=== PATIENT | female | born 1985 | race Hispanic/Latino ===

== ENCOUNTER 2016-07-28 18:01 | Outpatient (CLI) | payer MEDICAID ==
[2016-07-28 19:32] VITALS: BP 93/35
[2016-07-28] MEDS ORDERED: LACTATED RINGERS 500 ML IV ONE (19:46)
--- NOTE | 2016-07-28 19:52 | Event Note ---
Date: 07/28/16 (pt c/o burning in upper abdomen) Pt presents to triage c/o pain and burning in upper abdomen Pt is previous c/s X 2 Schedule for repeat @ 39 weeks SVE .5,30%,-4 Reactive tracing Ctx irreg mild Pt denies feeling them when they record on the monitor Will complete NST. Send UA IVF hydration Pepcid IV Re-eval with UA result.
[2016-07-28] MEDS ORDERED: PEPCID IV SCH (20:00)
[2016-07-28 21:48] LABS: Bilirubin,Urine NEG (Negative); Blood,Urine NEG (Negative); Ketones,Urine NEG (Negative); Leukocyte Esterase,Urine SM (Negative); Mucus,Urine FEW /HPF; Nitrite,Urine NEG (Negative); Protein,Urine <15 mg/dL mg/dL (Negative); Urobilinogen,Urine < 2.0 mg/dL (<2.0)
--- NOTE | 2016-07-29 07:25 | Ultrasound Report ---
BIOPHYSICAL PROFILE: History: Abdominal pain during . Technique: Transabdominal ultrasound with Doppler interrogation. 2 - breathing movements 2 - movements 2 - posture and tone 2 - Qualitative amniotic fluid volume 8 - TOTAL SCORE OF POSSIBLE 8 Heart Rate (bpm) 126
--- NOTE | 2016-07-29 10:26 | Ultrasound Report ---
OB ULTRASOUND: TECHNIQUE: Transabdominal ultrasound with Doppler interrogation. Gestation: stewart Position: cephalic Amniotic Fluid: WNL (7-24 cm) PRESTON = 15.9 cm Placenta: posterior, fundal Placental Grade: I Heart Rate: 152 BPM Cervical length: 4.1 cm (Normal > 3 cm) BPD: 8.18 cm = 32 w 6 d HC: 31.92 cm = 36 w 0 d AC: 31.45 cm = 35 w 3 d FL: 7.31 cm = 37 w 3 d HC/AC Ratio: 1.01 Cephalic Index: 74.4 Estimated Weight: 2747 grams LMP: 11-25-15 Clinical age = 35 w 1 d EDC: 08-31-16 US Gest. Age = 35 w 3 d EDC: 08-29-16
== END 2016-07-28 22:33 | disposition home or self-care (01) ==
LOC: TRG 18:01
PROVIDERS: ATTEND Obstetrics & Gynecology
DX: O26.893 Other specified pregnancy related conditions, third trimester (principal); O77.9 Labor and delivery complicated by fetal stress, unspecified; R10.9 Unspecified abdominal pain; Z3A.38 38 weeks gestation of pregnancy
CPT/HCPCS: 59025; 76816; 76819; 81001; 96360; J7120

== ENCOUNTER 2016-08-11 20:04 | Outpatient (CLI) | payer MEDICAID ==
[2016-08-11 20:14] VITALS: BP 129/73
[2016-08-11] MEDS ORDERED: PEPCID IV ONE (20:17)
[2016-08-11] MEDS ORDERED: LACTATED RINGERS 1,000 ML ONE (20:17)
[2016-08-11] MEDS ORDERED: REGLAN IV ONE (20:18)
[2016-08-11] MEDS ORDERED: LACTATED RINGERS 1,000 ML IV SCH (21:00)
== END 2016-08-11 21:35 | disposition home or self-care (01) ==
LOC: TRG 20:04
PROVIDERS: ATTEND Obstetrics & Gynecology
DX: O26.893 Other specified pregnancy related conditions, third trimester (principal); O77.9 Labor and delivery complicated by fetal stress, unspecified; R10.9 Unspecified abdominal pain; R11.0 Nausea; Z3A.37 37 weeks gestation of pregnancy
CPT/HCPCS: 59025; 96360; 96374; 96375; J2765; J7120

== ENCOUNTER 2021-06-05 00:23 | Day surgery (SDC) | payer MEDICAID ==
[2021-06-05] MEDS ORDERED: ONDANSETRON 4 MG/2 ML INJ IV ONE (00:42)
[2021-06-05] MEDS ORDERED: MORPHINE 4 MG/1 ML INJ IV ONE (00:42)
[2021-06-05] MEDS ORDERED: SODIUM CHLORIDE 0.9% 1000 ML 1,000 ML IV ONE (00:42)
--- NOTE | 2021-06-05 00:46 | Emergency Department Report ---
ED Abdominal Pain HPI - General Chief Complaint: Abdominal Pain Stated Complaint: ABDOMINAL PAIN Time Seen by Provider: 06/05/21 00:36 Source: patient Mode of arrival: Ambulatory Limitations: No Limitations - History of Present Illness Initial Comments: Patient is a 36-year-old female presents emergency with complaints of right lower quadrant abdominal pain that has been constant since 10 AM this morning. She states initially she was feeling intermittently since 05/30/2021 but reports today has been constant. She denies any fever, nausea, vomiting, diarrhea, hematochezia, melena, hematemesis, urinary symptoms, vaginal discharge, vaginal bleeding. No past medical history. Allergy to sulfa. She states her last menstrual cycle was approximately 2 weeks ago. past abdominal surgical history of and tubal ligation - Related Data Home Medications Medication Instructions Recorded Confirmed Last Taken Pnv,Calcium 72/Iron/Folic Acid 1 tab PO DAILY 04/02/15 06/21/16 06/21/16 [ Plus Tablet] Previous Rx's Medication Instructions Recorded Last Taken Type Albuterol Mdi (or & Nicu Only) 2 puff IH QID PRN #1 inhalation 06/01/14 06/21/16 Rx [Proair] Ferrous Sulfate [Feosol 325 MG tab] 325 mg PO BID #60 tablet 08/24/16 Unknown Rx Ibuprofen [Motrin 800 MG tab] 800 mg PO Q6H PRN #30 tablet 08/24/16 Unknown Rx oxyCODONE /ACETAMINOPHEN [Percocet 1 - 2 tab PO Q4H PRN #30 tablet 08/24/16 Unknown Rx 5/325 mg] Allergies Allergy/AdvReac Type Severity Reaction Status Date / Time Sulfa (Sulfonamide Allergy Severe Swelling Verified 05/09/16 08:50 Antibiotics) ED Review of Systems ROS: Stated complaint: ABDOMINAL PAIN Other details as noted in HPI Comment: All other systems reviewed and negative ED Past Medical Hx - Past Medical History Previous Medical History?: Yes Hx Hypertension: No Hx Congestive Heart Failure: No Hx Diabetes: No Hx Deep Vein Thrombosis: No Hx Renal Disease: No Hx Sickle Cell Disease: No Hx Arthritis: Yes Hx Seizures: No Hx Asthma: Yes Hx COPD: No Hx HIV: No - Surgical History Past Surgical History?: Yes Additional Surgical History: - Social History Smoking Status: Never Smoker Substance Use Type: None - Medications Home Medications: Home Medications Medication Instructions Recorded Confirmed Last Taken Type Albuterol Mdi (or & Nicu Only) 2 puff IH QID PRN #1 inhalation 06/01/14 06/21/16 06/21/16 Rx [Proair] Pnv,Calcium 72/Iron/Folic Acid 1 tab PO DAILY 04/02/15 06/21/16 06/21/16 History [ Plus Tablet] Ferrous Sulfate [Feosol 325 MG tab] 325 mg PO BID #60 tablet 08/24/16 Unknown Rx Ibuprofen [Motrin 800 MG tab] 800 mg PO Q6H PRN #30 tablet 08/24/16 Unknown Rx oxyCODONE /ACETAMINOPHEN [Percocet 1 - 2 tab PO Q4H PRN #30 tablet 08/24/16 Unknown Rx 5/325 mg] ED Physical Exam - General Limitations: No Limitations General appearance: alert, in no apparent distress - Head Head exam: Present: atraumatic, normocephalic - Eye Eye exam: Present: normal appearance - ENT ENT exam: Present: mucous membranes moist - Respiratory Respiratory exam: Present: normal lung sounds bilaterally. Absent: respiratory distress, wheezes, rales, rhonchi, stridor, chest wall tenderness, accessory muscle use, decreased breath sounds, prolonged expiratory - Cardiovascular Cardiovascular Exam: Present: regular rate, normal rhythm, normal heart sounds. Absent: systolic murmur, diastolic murmur, rubs, gallop - GI/Abdominal GI/Abdominal exam: Present: soft, tenderness (RLQ), guarding (voluntary), normal bowel sounds. Absent: distended, rebound, rigid - Neurological Exam Neurological exam: Present: alert, oriented X3 - Psychiatric Psychiatric exam: Present: normal affect, normal mood - Skin Skin exam: Present: warm, dry, intact ED Course Vital Signs 06/05/21 06/05/21 06/05/21 00:28 01:11 04:59 Temperature 98.6 F Pulse Rate 87 87 Respiratory 18 18 18 Rate Blood Pressure 117/81 147/93 O2 Sat by Pulse 100 100 Oximetry 06/05/21 05:00 Temperature Pulse Rate Respiratory Rate Blood Pressure O2 Sat by Pulse 100 Oximetry - Reevaluation(s) Reevaluation #1: 06/05/21 03:50 Called maintenance tech regarding delay in ultrasound reading, she states that she forgot to send to radiologist and states that she will send - Consultations Consultation #1: 11/27/21 04:[address] Welch, RECYCLE DRIVER regarding patient history and results, advised he will be taking patient to the operating room and will evaluate patient in the ER ED Medical Decision Making - Lab Data Result diagrams: 06/05/21 00:48 06/05/21 00:48 - Radiology Data Radiology results: report reviewed Ordering Physician: J LUIS BOCANEGRA Date of Service: 06/05/21 Procedure(s): US abdomen limited Accession Number(s): [id number] cc: J LUIS BOCANEGRA ULTRASOUND ABDOMEN, LIMITED (RIGHT UPPER QUADRANT) INDICATION: RLQ abd pain. COMPARISON: None available. FINDINGS: PANCREAS: No significant abnormality LIVER: 11.7 cm in length with a normal echo pattern, no focal lesion and normal directional blood flow in the main portal vein. GALLBLADDER: No significant abnormality. BILE DUCTS: No significant abnormality. Common bile duct measures 3.4 mm. FREE FLUID: None. ADDITIONAL FINDINGS: Images of the right kidney are normal. IMPRESSION: No significant sonographic abnormality of the right upper quadrant. Signer Name: Dixon Morelos MD Signed: 06/05/2021 4:32 AM Workstation Name: [id number] Transcribed By: RT Dictated By: Dixon Morelos MD Electronically Authenticated By: Dixon Morelos MD Signed Date/Time: 06/05/21431 DD/ 9 TD/TT: Ordering Physician: J LUIS BOCANEGRA Date of Service: 06/05/21 Procedure(s): US OB <= 14 weeks fetus Accession Number(s): [id number] cc: J LUIS BOCANEGRA TRANSABDOMINAL AND TRANSVAGINAL OB PELVIC ULTRASOUND INDICATION / CLINICAL INFORMATION: Pelvic pain. COMPARISON: None available. FINDINGS: Transabdominal: The uterus measures 12.0 x 3.9 x 6.6 cm. The endometrial cavity is empty. The right ovary measures 5.2 x 2.9 x 5.0 cm. The left ovary measures 3.7 x 1.9 x 3.9 cm. There is normal blood flow to both ovaries on Doppler exam. No abnormal mass or fluid collection is seen. Images of the urinary bladder are normal. Transvaginal: The endometrial cavity is empty. There is an ill-defined complex mass in the right adnexa which is separate from the ovary. There is a probable pole measuring 9 weeks 4 days. There is a heart rate of 155 bpm. No well-defined extrauterine sac is seen. There is mild complex free fluid in the cul-de-sac. IMPRESSION: Findings characteristic of ectopic in the right adnexa with evidence of partial rupture. CRITICAL RESULT Time of Discovery (SUPERVISOR PRODUCTION MANAGING/CDT): 3:40 AM Time of Communication (SUPERVISOR PRODUCTION MANAGING/CDT): 3:40 AM Licensed Practitioner Receiving Report: Dr. Dayami Ayala Read-Back Performed: Not applicable. Signer Name: Dixon Morelos MD Signed: 06/05/2021 4:43 AM Workstation Name: [id number] Transcribed By: RT Dictated By: Dixon Morelos MD Electronically Authenticated By: Dixon Morelos MD Signed Date/Time: 06/05/21442 DD/ 1 TD/TT: - Medical Decision Making Patient is a 36-year-old female presents emergency with complaints of right lower quadrant abdominal pain that has been constant since 10 AM this morning. She states initially she was feeling intermittently since 05/30/2021 but reports today has been constant. She denies any fever, nausea, vomiting, diarrhea, hematochezia, melena, hematemesis, urinary symptoms, vaginal discharge, vaginal bleeding. No past medical history. Allergy to sulfa. She states her last menstrual cycle was approximately 2 weeks ago. past abdominal surgical history of and tubal ligation. Vitals are normal. On exam patient has right lower quadrant tenderness with voluntary guarding. Labs resulted with positive hCG. hCG quant ordered and it is 821. UA is within normal limits. abdominal US ordered IMPRESSION: No significant sonographic abnormality of the right upper quadrant. OB US: IMPRESSION: Findings characteristic of ectopic in the right adnexa with evidence of partial rupture. Spoke to Dr. Welch, RECYCLE DRIVER regarding patient history and results, advised he will be taking patient to the operating room and will evaluate patient in the ER. Discussed all findings with patient and answer questions. Patient given pain medication in the ER and she is resting comfortably and currently pain-free. Critical care attestation.: If time is entered above; I have spent that time in minutes in the direct care of this critically ill patient, excluding procedure time. ED Disposition Clinical Impression: Ectopic Qualifiers: Location of ectopic : unspecified location Intrauterine st atus: without intrauterine Qualified Code(s): O00.90 - Unspecified ectopic without intrauterine Abdominal pain Qualifiers: Abdominal location: right lower quadrant Qualified Code(s): R10.31 - Right lower quadrant pain Disposition: 30 STILL A PATIENT Is pt being admited?: No Does the pt Need Aspirin: No Condition: Fair Instructions: Abdominal Pain (ED) Referrals: PRIMARY CARE, [Referring] - 3-5 Days Time of Disposition: 06:37 Print Language: WELSH
[2021-06-05 01:09] LABS: Basophils % (Auto) 0.4 % (0.0-1.8); Eosinophils # (Auto) 0.5 K/mm3 (0.0-0.4); Eosinophils % (Auto) 4.8 % (0.0-4.3); Hematocrit 33.1 % (30.3-42.9); Hemoglobin 10.5 gm/dl (10.1-14.3); Lymphocytes # (Auto) 1.7 K/mm3 (1.2-5.4); Lymphocytes % (Auto) 17.1 % (13.4-35.0); Mean Corpuscular HGB Conc 32 % (30-34); Mean Corpuscular Volume 85 fl (79-97); Monocytes # (Auto) 0.4 K/mm3 (0.0-0.8); Monocytes % (Auto) 4.3 % (0.0-7.3); Platelet Count 395 K/mm3 (140-440); Red Cell Distribution Width 15.3 % (13.2-15.2)
[2021-06-05 01:32] LABS: Alanine Aminotransferase 15 units/L (7-56); Albumin 4.2 g/dL (3.9-5); Blood Urea Nitrogen 5 mg/dL (7-17); Calcium 9.4 mg/dL (8.4-10.2); Hemolysis Index 3
[2021-06-05 02:00] LABS: BUN/Creatinine Ratio 10
--- NOTE | 2021-06-05 04:36 | Ultrasound Report ---
ULTRASOUND ABDOMEN, LIMITED (RIGHT UPPER QUADRANT) INDICATION: RLQ abd pain. COMPARISON: None available. FINDINGS: PANCREAS: No significant abnormality LIVER: 11.7 cm in length with a normal echo pattern, no focal lesion and normal directional blood gwendolyn w in the main portal vein. GALLBLADDER: No significant abnormality. BILE DUCTS: No significant abnormality. Common bile duct measures 3.4 mm. FREE FLUID: None. ADDITIONAL FINDINGS: Images of the right kidney are normal. IMPRESSION: No significant sonographic abnormality of the right upper quadrant. Signer Name: Dixon Morelos MD Signed: 06/05/2021 4:32 AM Workstation Name: [id number]
[2021-06-05 04:38] LABS: Bilirubin,Urine NEG (Negative); Blood,Urine NEG (Negative); Color,Urine Straw (Yellow); Mucus,Urine FEW /HPF; Protein,Urine <15 mg/dL mg/dL (Negative); Urobilinogen,Urine < 2.0 mg/dL (<2.0); WBC,Urine < 1.0 /HPF (0.0-6.0)
--- NOTE | 2021-06-05 04:47 | Ultrasound Report ---
TRANSABDOMINAL AND TRANSVAGINAL OB PELVIC ULTRASOUND INDICATION / CLINICAL INFORMATION: Pelvic pain. COMPARISON: None available. FINDINGS: Transabdominal: The uterus measures 12.0 x 3.9 x 6.6 cm. The endometrial cavity is empty. The right o vary measures 5.2 x 2.9 x 5.0 cm. The left ovary measures 3.7 x 1.9 x 3.9 cm. There is normal blood f low to both ovaries on Doppler exam. No abnormal mass or fluid collection is seen. Images of the urin miranda bladder are normal. Transvaginal: The endometrial cavity is empty. There is an ill-defined complex mass in the right adne xa which is separate from the ovary. There is a probable pole measuring 9 weeks 4 days. There i s a heart rate of 155 bpm. No well-defined extrauterine sac is seen. There is mild complex free fluid in the cul-de-sac. IMPRESSION: Findings characteristic of ectopic in the right adnexa with evidence of partial rupture. CRITICAL RESULT Time of Discovery (BUSINESS CONTROLLER/CDT): 3:40 AM Time of Communication (BUSINESS CONTROLLER/CDT): 3:40 AM Licensed Practitioner Receiving Report: Dr. Dayami Ayala Read-Back Performed: Not applicable. Signer Name: Dixon Morelos MD Signed: 06/05/2021 4:43 AM Workstation Name: [id number]
--- NOTE | 2021-06-05 04:47 | Ultrasound Report ---
TRANSABDOMINAL AND TRANSVAGINAL OB PELVIC ULTRASOUND INDICATION / CLINICAL INFORMATION: Pelvic pain. COMPARISON: None available. FINDINGS: Transabdominal: The uterus measures 12.0 x 3.9 x 6.6 cm. The endometrial cavity is empty. The right o vary measures 5.2 x 2.9 x 5.0 cm. The left ovary measures 3.7 x 1.9 x 3.9 cm. There is normal blood f low to both ovaries on Doppler exam. No abnormal mass or fluid collection is seen. Images of the urin miranda bladder are normal. Transvaginal: The endometrial cavity is empty. There is an ill-defined complex mass in the right adne xa which is separate from the ovary. There is a probable pole measuring 9 weeks 4 days. There i s a heart rate of 155 bpm. No well-defined extrauterine sac is seen. There is mild complex free fluid in the cul-de-sac. IMPRESSION: Findings characteristic of ectopic in the right adnexa with evidence of partial rupture. CRITICAL RESULT Time of Discovery (TRUST AND ESTATES ATTORNEY/CDT): 3:40 AM Time of Communication (TRUST AND ESTATES ATTORNEY/CDT): 3:40 AM Licensed Practitioner Receiving Report: Dr. Dayami Ayala Read-Back Performed: Not applicable. Signer Name: Dixon Morelos MD Signed: 06/05/2021 4:43 AM Workstation Name: [id number]
--- NOTE | 2021-06-05 06:38 | History and Physical Report ---
History of Present Illness Date of examination: 06/05/21 Date of admission: 06/05/21 Chief complaint: Pelvic pain. History of present illness: ED diagnosed "partial" ruptured ectopic . 36 yr old x 3previous csections and Lonnie tubal sterilization in 2017. Operative notes from 2017 csection noted extensive peritoneal adhesions. LMP 05/20/21. Past History Past Medical History: asthma Past Surgical History: section - Obstetrical History : 4 Para: 3 Medications and Allergies Allergies Allergy/AdvReac Type Severity Reaction Status Date / Time Sulfa (Sulfonamide Allergy Severe Swelling Verified 05/09/16 08:50 Antibiotics) Home Medications Medication Instructions Recorded Confirmed Last Taken Type Albuterol Mdi (or & Nicu Only) 2 puff IH QID PRN #1 inhalation 06/01/14 06/21/16 06/21/16 Rx [Proair] Pnv,Calcium 72/Iron/Folic Acid 1 tab PO DAILY 04/02/15 06/21/16 06/21/16 History [ Plus Tablet] Ferrous Sulfate [Feosol 325 MG tab] 325 mg PO BID #60 tablet 08/24/16 Unknown Rx Ibuprofen [Motrin 800 MG tab] 800 mg PO Q6H PRN #30 tablet 08/24/16 Unknown Rx oxyCODONE /ACETAMINOPHEN [Percocet 1 - 2 tab PO Q4H PRN #30 tablet 08/24/16 Unknown Rx 5/325 mg] Review of Systems All systems: negative Gastrointestinal: abdominal pain Genitourinary: pelvic pain - Vital Signs Vital signs: Vital Signs Temp Pulse Resp BP Pulse Ox 98.6 F 87 18 117/81 100 06/05/21 00:28 06/05/21 00:28 06/05/21 00:28 06/05/21 00:28 06/05/21 00:28 Temp Pulse Resp BP Pulse Ox 98.6 F 87 18 147/93 100 06/05/21 00:28 06/05/21 04:59 06/05/21 04:59 06/05/21 04:59 06/05/21 05:00 - Physical Exam Lungs: Positive: Normal air movement Abdomen: Positive: distention Uterus: Positive: other (US report reviewed.) Extremities: Positive: normal Deep Tendon Reflex Grade: Normal +2 Results Result Diagrams: 06/05/21 00:48 06/05/21 00:48 Abnormal lab results 06/05/21 06/05/21 06/05/21 Range/Units 00:48 00:48 00:48 MCH 27 L (28-32) pg RDW 15.3 H (13.2-15.2) % Eos % (Auto) 4.8 H (0.0-4.3) % Eos # (Auto) 0.5 H (0.0-0.4) K/mm3 Seg Neutrophils % 73.4 H (40.0-70.0) % Chloride 107.6 H (98-107) mmol/L BUN 5 L (7-17) mg/dL Creatinine 0.5 L (0.6-1.2) mg/dL Glucose 118 H (65-100) mg/dL HCG, Quant 821.8 H (0-4) mIU/mL All other labs normal. Assessment and Plan - Patient Problems (1) Mass of uterine adnexa Current Visit: Yes Status: Acute Plan to address problem: For exploratory laparoscopy [place].
--- NOTE | 2021-06-05 07:34 | Anesthesia Consultation ---
Anesthesia Consult and Med Hx Date of service: 06/05/21 - Airway Anesthetic Teeth Evaluation: Good ROM Head & Neck: Adequate Mental/Hyoid Distance: Adequate Mallampati Class: Class I Intubation Access Assessment: Good - Pulmonary Exam CTA: Yes - Pre-Operative Health Status ASA Pre-Surgery Classification: ASA2, Emergency Proposed Anesthetic Plan: General - Pulmonary Hx Smoking: No Hx Asthma: Yes SOB: No COPD: No Hx Pneumonia: No - Cardiovascular System Hx Hypertension: No - Central Nervous System Hx Seizures: No Hx Psychiatric Problems: No - Endocrine Hx Renal Disease: No Hx End Stage Renal Disease: No Hx Liver Disease: No Hx Insulin Dependent Diabetes: No Hx Non-Insulin Dependent Diabetes: No Hx Thyroid Disease: No - Hematic Hx Anemia: No Hx Sickle Cell Disease: No - Other Systems Hx Alcohol Use: No Hx Substance Use: Yes (Ecstasy) Hx Obesity: Yes (BMI- 34.2kg) - Additional Comments Anesthesia Medical History Comments: Denied previous anesthesia complication
--- NOTE | 2021-06-05 07:36 | Anesthesia Day of Surgery ---
Anesthesia Day of Surgery - Day of Surgery Patient Examined: Yes Patient H&P Reviewed: Yes Patient is NPO: Yes Beta Blockers: No Cardiac Clearance: No Pulmonary Clearance: No
[2021-06-05] MEDS ORDERED: ONDANSETRON 4 MG/2 ML INJ ONE ×2 (07:38→09:58)
[2021-06-05] MEDS ORDERED: LIDOCAINE MPF (2%) 20 MG/1 ML VIAL 5 ML ONE (07:38)
[2021-06-05] MEDS ORDERED: ROCURONIUM 50 MG/5 ML INJ IV ONE (07:38)
[2021-06-05] MEDS ORDERED: fentaNYL 100 MCG/2 ML INJ ONE (07:39)
[2021-06-05] MEDS ORDERED: propofoL 200 MG/20 ML VIAL IV ONE (07:39)
[2021-06-05] MEDS ORDERED: ceFAZolin 1 GM VIAL ONE ×2 (08:18)
[2021-06-05] MEDS ORDERED: dexAMETHasone 20 MG/5 ML VIAL ONE (08:18)
[2021-06-05] MEDS ORDERED: SODIUM CHLORIDE 0.9% IRRIG SOLN 2000 ML IR ONE (09:00)
[2021-06-05] MEDS ORDERED: SODIUM CHLORIDE 0.9% IRR 1,500 ML BOTTLE IR ONE (09:00)
[2021-06-05] MEDS ORDERED: HYDROmorphone 1 MG/1 ML INJ ONE (09:11)
[2021-06-05] MEDS ORDERED: NEOSTIGMINE 10MG/10 ML INJ MDV ONE (09:24)
[2021-06-05] MEDS ORDERED: GLYCOPYRROLATE 0.4 MG/2 ML INJ ONE (09:24)
--- NOTE | 2021-06-05 09:31 | Operative Report ---
Operative Report Operative Report: Date of surgery: June 05, 2021 Admission diagnosis: Right adnexal mass, positive test, dense pe ritoneal adhesions, right ectopic Postoperative diagnosis: The same, Procedure: Diagnostic laparoscopic. Lysis of adhesions, excision of right adnexal mass Surgeon: Tomasz Welch MD Anesthesia: General anesthesia Anesthesiologist: Taiwo Anderson CRNA Estimated blood loss: Less than 5 cc Complications: None Findings: The uterus and ovaries were both grossly normal. The bowels, omentum, inferior dome of the diaphragm, the liver were all grossly normal. There were dense peritoneal adhesions attaching the greater omentum to the anterior parietal peritoneum just inferior to the navel. There were even denser peritoneal adhesions binding the anterior uterine aspect to the anterior parietal peritoneum with a window it from the anterior cul-de-sac. A saccular hemorrhagic mass was found in the right adnexa and appeared to be contained within the remnant of the fallopian tube on the side. Procedure in details: Patient was taken to the operating room and in the straight supine position she was given general anesthesia. Patient was then put in the lithotomy position and prepped in the vulvar vagina and abdomen. The drapes were placed. A timeout was done. Wished to go ahead from the sorter lumber straightener, an indwelling Del Cid catheter was inserted. A sponge forceps was attached to the anterior lip of the cervix and was used to anchor the acorn cannula. At the navel a small stab incision was made in the sub-umbilical aspect. The Veress needle was carefully inserted into the peritoneal cavity, making sure to point the tip of this instruments towards the free hollow of the pelvis. The Veress needle was thereafter aspirated and no blood was drawn. Veress needle was then flushed through with a small quantity of sterile normal saline without any resistance. About 3 and half liters of carbon dioxide was used to insufflate the peritoneal cavity. After removing the Veress needle, a 12mm trocar with its port was inserted into the peritoneal cavity and again making sure to point the tip of this instrument into the free hollow of the pelvis. The laparoscope subsequently confirmed successful access to the peritoneal cavity. 2 additional 5 mm ports was placed in the left flank. The LigaSure was used to divide all the peritoneal adhesions. The LigaSure was also used to dissect and remove the right adnexal mass. There was no bleeding intraperitoneally. Hemostasis was very good. Careful inspection of the peritoneal cavity was once again done. The pneumoperitoneum was then expelled and all instruments were removed from the abdomen.The fascia at the navel was repaired with #1 vicryl before each incision was sealed with Dermabond. The patient tolerated the procedure well. There were no complications. Blood loss was estimated at less than 5 cc. All sponges and instruments were accounted for. The patient was transferred in satisfactory condition to the recovery room.
[2021-06-05] MEDS ORDERED: LACTATED RINGERS 1,000 ML ONE ×2 (09:40→09:46)
[2021-06-05] MEDS ORDERED: ONDANSETRON 4 MG/2 ML INJ IV PRN (09:59)
[2021-06-05] MEDS: HYDROmorphone 1 MG/1 ML INJ IV PRN ×2 (10:10→10:20)
[2021-06-05 11:26] VITALS: BP 128/77
--- NOTE | 2021-06-05 19:01 | Post Anesthesia Evaluation ---
- Post Anesthesia Evaluation Patient Participated: Yes Airway Patent: Yes Stable Respiratory Function: Yes Nausea/Vomiting: No Temp > 96.8F: Yes Pain Manageable: Yes Adequeate Hydration: Yes Anesthesia Complications: No Block Receding Appropriately: Not Applicable Patient on Ventilator: No
== END 2021-06-05 11:20 | disposition home or self-care (01) ==
LOC: ED 00:23 → OR 10:15
PROVIDERS: ATTEND Obstetrics & Gynecology
DX: R10.2 Pelvic and perineal pain (principal); E66.9 Obesity, unspecified; M19.90 Unspecified osteoarthritis, unspecified site; J45.901 Unspecified asthma with (acute) exacerbation; Z79.899 Other long term (current) drug therapy; Z98.890 Other specified postprocedural states; Z88.2 Allergy status to sulfonamides
CPT/HCPCS: 36415; 58660; 76705; 76801; 76817; 80053; 81001; 83690; 84702; 84703; 85025; 86850; 86900; 86901; 88305; 99285; J0690; J1100; J1170; J1815; J2270; J2405; J2704; J2710; J3010; J3490; J7030; J7120; Q0162

== ENCOUNTER 2021-07-07 15:51 | Emergency (ER) | payer MEDICAID | END 2021-07-07 16:00 | disposition left against medical advice (07) | LOC: ED 15:51 | DX: M54.9 Dorsalgia, unspecified (principal); Z53.21 Procedure and treatment not carried out due to patient leaving prior to being seen by health care provider ==

== ENCOUNTER 2022-01-29 12:04 | Emergency (ER) | payer MEDICAID ==
[2022-01-29 13:31] VITALS: BP 139/80
--- NOTE | 2022-01-29 14:23 | Emergency Department Report ---
ED Back Pain/Injury HPI - General Chief Complaint: Back Pain/Injury Stated Complaint: RT SIDE PAIN DOWN TO LEG Time Seen by Provider: 01/29/22 14:13 Source: patient Limitations: No Limitations - History of Present Illness Complaint: back pain -: Gradual, days(s) (4) Similar Symptoms Previously: Yes Place: home (was picking something up off the floor and pain to left lower back) Severity: mild Quality: sharp, stabbing, aching Consistency: constant Improves With: none Worsens With: movement, sitting upright Associated Symptoms: difficulty walking. denies: diaphoresis, incontinence, abdominal pain, loss of appetite, malaise, nausea/vomiting, seizure, shortness of breath - Related Data Home Medications Medication Instructions Recorded Confirmed Last Taken Pnv,Calcium 72/Iron/Folic Acid 1 tab PO DAILY 04/02/15 06/21/16 06/21/16 [ Plus Tablet] Previous Rx's Medication Instructions Recorded Last Taken Type Albuterol Mdi (or & Nicu Only) 2 puff IH QID PRN #1 inhalation 06/01/14 06/21/16 Rx [Proair] Ferrous Sulfate [Feosol 325 MG tab] 325 mg PO BID #60 tablet 08/24/16 Unknown Rx Ibuprofen [Motrin 800 MG tab] 800 mg PO Q6H PRN #30 tablet 08/24/16 Unknown Rx oxyCODONE /ACETAMINOPHEN [Percocet 1 - 2 tab PO Q4H PRN #30 tablet 08/24/16 Unknown Rx 5/325 mg] methOCARBAMOL [Robaxin TAB] 750 mg PO Q8H PRN #14 tablet 01/29/22 Unknown Rx predniSONE [Deltasone] 50 mg PO QDAY #5 tab 01/29/22 Unknown Rx traMADoL [Ultram] 50 mg PO Q6HR PRN #20 tablet 01/29/22 Unknown Rx Allergies Allergy/AdvReac Type Severity Reaction Status Date / Time Sulfa (Sulfonamide Allergy Severe Swelling Verified 05/09/16 08:50 Antibiotics) ED Review of Systems ROS: Stated complaint: RT SIDE PAIN DOWN TO LEG Other details as noted in HPI Comment: All other systems reviewed and negative ED Past Medical Hx - Past Medical History Hx Hypertension: No Hx Congestive Heart Failure: No Hx Diabetes: No Hx Deep Vein Thrombosis: No Hx Liver Disease: No Hx Renal Disease: No Hx Sickle Cell Disease: No Hx Arthritis: Yes Hx Seizures: No Hx Asthma: Yes Hx COPD: No Hx HIV: No - Surgical History Additional Surgical History: , R fallopian tube - Social History Smoking Status: Never Smoker Substance Use Type: None - Medications Home Medications: Home Medications Medication Instructions Recorded Confirmed Last Taken Type Albuterol Mdi (or & Nicu Only) 2 puff IH QID PRN #1 inhalation 06/01/14 06/21/16 06/21/16 Rx [Proair] Pnv,Calcium 72/Iron/Folic Acid 1 tab PO DAILY 04/02/15 06/21/16 06/21/16 History [ Plus Tablet] Ferrous Sulfate [Feosol 325 MG tab] 325 mg PO BID #60 tablet 08/24/16 Unknown Rx Ibuprofen [Motrin 800 MG tab] 800 mg PO Q6H PRN #30 tablet 08/24/16 Unknown Rx oxyCODONE /ACETAMINOPHEN [Percocet 1 - 2 tab PO Q4H PRN #30 tablet 08/24/16 Unknown Rx 5/325 mg] methOCARBAMOL [Robaxin TAB] 750 mg PO Q8H PRN #14 tablet 01/29/22 Unknown Rx predniSONE [Deltasone] 50 mg PO QDAY #5 tab 01/29/22 Unknown Rx traMADoL [Ultram] 50 mg PO Q6HR PRN #20 tablet 01/29/22 Unknown Rx ED Physical Exam - General Limitations: No Limitations General appearance: alert, in no apparent distress, appears intoxicated, anxious - Head Head exam: Present: atraumatic, normocephalic, normal inspection - Eye Eye exam: Present: normal appearance. Absent: scleral icterus, conjunctival injection Pupils: Present: normal accommodation - ENT ENT exam: Present: normal exam, normal orophraynx, mucous membranes moist, TM's normal bilaterally - Neck Neck exam: Present: normal inspection, full ROM - Respiratory Respiratory exam: Present: normal lung sounds bilaterally. Absent: respiratory distress, wheezes, rales, chest wall tenderness, accessory muscle use - Cardiovascular Cardiovascular Exam: Present: regular rate, normal rhythm. Absent: systolic murmur, diastolic murmur, rubs, gallop - GI/Abdominal GI/Abdominal exam: Present: soft, normal bowel sounds - Extremities Exam Extremities exam: Present: normal inspection, normal capillary refill - Back Exam Back exam: Present: normal inspection, tenderness, paraspinal tenderness, vertebral tenderness, other (tender to SI joint. Pain with SLR and Fabers test. ). Absent: CVA tenderness (R), CVA tenderness (L) - Neurological Exam Neurological exam: Present: alert, oriented X3, CN II-XII intact. Absent: normal gait, abnormal gait, reflexes normal - Psychiatric Psychiatric exam: Present: normal affect, normal mood. Absent: flat affect, manic - Skin Skin exam: Present: warm, dry, intact, normal color. Absent: rash, diaphoretic, erythema ED Course Vital Signs 01/29/22 12:50 Temperature 97.6 F Pulse Rate 83 Respiratory 18 Rate Blood Pressure 139/80 [Left] O2 Sat by Pulse 100 Oximetry ED Medical Decision Making - Medical Decision Making Mild pt presents the emergency department complaining of back pain most consistent with sacroiliac back Pain Most Consistent with sacroiliitis. Differential Diagnosis Includes Lumbar Go Versus Musculoskeletal Spasm, Strain Versus Sciatica. No Back Pain Red Flags on History or Physical. Presentation Not Consistent with Malignancy, Fracture, Cauda Equina, Abdominal Aortic Aneurysm, Viscus Perforation, Pulmonary Embolism, Renal Colic, Pyelonephritis. Patient reports no B symptoms, trauma trauma, incontinence, saddle anesthesia, distal weakness, urinary symptoms and is a febrile. Critical care attestation.: If time is entered above; I have spent that time in minutes in the direct care of this critically ill patient, excluding procedure time. ED Disposition Clinical Impression: Lumbago of lumbar region with sciatica Disposition: HOME / SELF CARE / HOMELESS Is pt being admited?: No Does the pt Need Aspirin: No Condition: Stable Instructions: Radicular Pain, Sciatica Rehab-SportsMed Prescriptions: predniSONE [Deltasone] 50 mg PO QDAY #5 tab methOCARBAMOL [Robaxin TAB] 750 mg PO Q8H PRN #14 tablet PRN Reason: Pain, Moderate (4-6) traMADoL [Ultram] 50 mg PO Q6HR PRN #20 tablet PRN Reason: Pain Referrals: [facility] [Provider Group] - 3-5 Days
== END 2022-01-29 14:45 | disposition home or self-care (01) ==
LOC: ED 12:04
DX: M54.40 Lumbago with sciatica, unspecified side (principal); J45.909 Unspecified asthma, uncomplicated; Z88.1 Allergy status to other antibiotic agents
CPT/HCPCS: 99281